=== PATIENT | female | born 1955 | race Caucasian/White ===

== ENCOUNTER 2020-01-20 20:29 | Outpatient (CLI) | payer OTHER | END 2020-01-20 20:30 | disposition home or self-care (01) | LOC: COV 20:29 | PROVIDERS: ATTEND Family Medicine | DX: R05 Cough (principal); M79.10 Myalgia, unspecified site; R53.83 Other fatigue; R68.83 Chills (without fever); R07.0 Pain in throat; R09.81 Nasal congestion; J34.89 Other specified disorders of nose and nasal sinuses; Z20.828 Contact with and (suspected) exposure to other viral communicable diseases ==

== ENCOUNTER 2022-12-01 15:10 | Outpatient (CLI) | payer MEDICARE ==
--- NOTE | 2022-12-01 17:05 | Ultrasound Report ---
PROCEDURE: Duplex Ext Veins Bilateral INDICATIONS: Lorenzo Bhatti MD TECHNIQUE: Real-time imaging, as well as color and pulse Doppler interrogation, were performed of the deep veins of both legs from the inguinal ligament to the popliteal fossa. Attempted visualization of the calf veins was performed. COMPARISON: None FINDINGS: The deep veins are normally compressible, and free of intraluminal thrombus. Color and pu lse Doppler demonstrate normal phasic intravascular flow. There is normal augmentation response to d istal compression maneuver. Left popliteal fossa Ye's cyst measuring 3.3 x 1.1 x 3.4 cm. IMPRESSION: No deep venous thrombosis of the bilateral lower extremities. Ye's cyst, left popliteal fossa. Reviewed by: Kostas Castro MD on 12/01/2022 5:04 PM PDT Approved by: Kostas Castro MD on 12/01/2022 5:04 PM PDT Station ID: [id number]
== END 2022-12-01 15:11 | disposition home or self-care (01) ==
LOC: DI 15:10
PROVIDERS: ATTEND Family Medicine
DX: M71.22 Synovial cyst of popliteal space [Baker], left knee (principal)
CPT/HCPCS: 93970

== ENCOUNTER 2023-09-04 22:10 | Outpatient (CLI) | payer MEDICARE ==
--- NOTE | 2023-09-05 16:43 | Ultrasound Report ---
PROCEDURE: Abdomen Complete INDICATIONS: TRANSAMINITIS TECHNIQUE: Real-time scanning was performed of the abdominal and retroperitoneal organs, with image documentatio n. COMPARISON: None. FINDINGS: Liver: Increased liver echogenicity, commonly mild hepatic steatosis. Heterogeneous echogenicity. Sm ooth contour. Gallbladder: No gallstones, sludge, wall thickening or pericholecystic edema. Biliary ducts: Intrahepatic bile ducts are non-dilated. Extrahepatic bile duct caliber measures 2.4 mm. Normal is 6-7 mm or less in diameter, or 10 mm or less post-cholecystectomy. Pancreas: Visualized portions of the pancreas are sonographically normal. Spleen: Spleen is normal in size and homogeneous in echotexture. Kidneys: Kidneys are normal in size and echotexture. Right kidney measures 10.7 cm long; left kidne y measures 10.9 cm long. No hydronephrosis or nephrolithiasis. No solid masses. No complex renal cy stic lesions which require follow-up. Aorta: Visualized aorta is normal in caliber at less than 3 cm. Iliacs: Proximal common iliac arteries are normal in caliber at less than 2.5 cm. IVC: Intrahepatic inferior vena cava is patent. Miscellaneous: No free abdominal fluid. IMPRESSION: Increased liver echogenicity, commonly caused by hepatic steatosis. Elevated LFTs may indicate steato hepatitis. Reviewed by: Norman Griggs MD on 09/05/2023 4:42 PM PDT Approved by: Norman Griggs MD on 09/05/2023 4:42 PM PDT Station ID: [id number]
== END 2023-09-04 22:11 | disposition home or self-care (01) ==
LOC: DI 22:10
PROVIDERS: ATTEND Student in an Organized Health Care Education/Training Program
DX: R74.01 Elevation of levels of liver transaminase levels (principal)